=== PATIENT | female | born 1940 | race Two or more races ===

== ENCOUNTER 2018-12-02 00:28 | Inpatient (IN) | payer MEDICARE, OTHER ==
[~2018-12-02] VITALS: Ht 152.4 cm; Wt 70.3 kg
--- NOTE | 2018-12-02 00:28 | NUR ---
TO BED 6 BIB EMS C/O NONRADIATING L SIDED CP X2 HRS PHARMACY CUSTOMER CARE SPECIALIST. PT WAS GIVEN NITRO AND ASPIRIN BY EM PHARMACY CUSTOMER CARE SPECIALIST. PT AAOX4 NO ACUTE DISTRESS NOTED, RESP EVEN AND UNLABORED. SKIN WARM, NONDIAPHORETIC. PLACE PT ON CARDIAC MONITORING, CONTINUOUS POX, O2@2L/NC. SL 20G TO L HAND PHARMACY CUSTOMER CARE SPECIALIST. PENDING ER MD CHADWICK.
--- NOTE | 2018-12-02 00:31 | NUR ---
ER MD AT BEDSIDE TO EVAL PT WITH ORDERS RECEIVED. WILL CARRY OUT ORDERS.
[2018-12-02] MEDS ORDERED: DEXTROSE 50%-WATER 50 ML DISP.SYRIN ONE (00:48)
[2018-12-02 00:53] LABS: BASOPHILS # (AUTO) 0.1 /CMM (0.0-0.2); BASOPHILS % (AUTO) 0.8 % (0.0-2.0); EOSINOPHILS % (AUTO) 3.5 % (0.0-6.0); HEMATOCRIT 30 % (33-45); HEMOGLOBIN 9.8 g/dL (11.5-14.8); LYMPHOCYTES # (AUTO) 0.9 /CMM (0.8-4.8); LYMPHOCYTES % (AUTO) 9.9 % (20.0-44.0); MEAN CORPUSCULAR HGB CONC 33 g/dl (31.0-36.0); MEAN CORPUSCULAR VOLUME 92 fL (82-100); MONOCYTES # (AUTO) 0.6 /CMM (0.1-1.30); MONOCYTES % (AUTO) 6.6 % (2.0-12.0); NEUTROPHILS # (AUTO) 7.3 /CMM (1.8-8.9); NEUTROPHILS % (AUTO) 79.2 % (43.0-81.0); PLATELET COUNT (AUTO) 181 /CMM (150-450); WHITE BLOOD COUNT (AUTO) 9.2 K/uL (4.3-11.0)
[2018-12-02] MEDS ORDERED: DEXTROSE 50%-WATER 50 ML DISP.SYRIN IV ONE (01:00)
[2018-12-02 01:04] LABS: CARBON DIOXIDE 22 mmol/L (21-32); CHLORIDE 107 mmol/L (98-107); CREATININE 1.1 mg/dL (0.6-1.3); GLUCOSE 56 mg/dL (74-106); POTASSIUM 4.4 mmol/L (3.5-5.1); SODIUM SERUM 138 mmol/L (136-145); UREA NITROGEN, BLOOD 19 mg/dL (7-18)
[2018-12-02 01:16] LABS: B-TYPE NATRIURETIC PEPTIDE 7008 PG/ML (0-125)
--- NOTE | 2018-12-02 01:36 | NUR ---
CALLED NURSING CYBER SECURITY ENGINEER FOR TELE BED.
--- NOTE | 2018-12-02 01:43 | NUR ---
REPEAT BLOOD GLUCOSE; REPORTED TO
--- NOTE | 2018-12-02 01:57 | NUR ---
REPORT GIVEN TO LEI TREJO FOR JUANI; PT WILL BE TRANSPOERTED TO 1ST FLOOR TELE
[2018-12-02] MEDS ORDERED: MAGNESIUM HYDROXIDE 30 ML UDC PO PRN (02:00)
[2018-12-02] MEDS ORDERED: ONDANSETRON HCL/PF 4 MG/2 ML VIAL IVP PRN (02:00)
[2018-12-02] MEDS ORDERED: MAG HYDROX/AL HYDROX/SIMETH 30 ML UDC PO PRN (02:00)
[2018-12-02] MEDS ORDERED: Z GUARD REMEDY 2 OZ OINT TP PRN (02:00)
[2018-12-02] MEDS ORDERED: MORPHINE SULFATE INJ 2 MG/ML DISP.SYRIN IV PRN (02:00)
[2018-12-02] MEDS ORDERED: NITROGLYCERIN 0.4 MG/TAB BOTTLE SL PRN (02:00)
[2018-12-02] MEDS ORDERED: MORPHINE SULFATE INJ 4 MG/ML DISP.SYRIN IV PRN (02:04)
[2018-12-02] MEDS ORDERED: ISOS10TA2 PO (02:18)
[2018-12-02] MEDS ORDERED: MULT1TAB73 PO (02:18)
[2018-12-02] MEDS ORDERED: SACU1TAB PO (02:18)
[2018-12-02] MEDS ORDERED: PANT40TA2 PO (02:18)
[2018-12-02] MEDS ORDERED: DULA0.75 SQ (02:18)
[2018-12-02] MEDS ORDERED: AMIO200T4 PO (02:18)
[2018-12-02] MEDS ORDERED: ATOR40TA PO (02:18)
[2018-12-02] MEDS ORDERED: TICA90TA PO (02:18)
[2018-12-02] MEDS ORDERED: CARV12.52 PO (02:18)
[2018-12-02] MEDS ORDERED: CHOL10002 PO (02:18)
[2018-12-02] MEDS ORDERED: ASPI-1152 PO (02:18)
[2018-12-02] MEDS ORDERED: INSU100I19 SQ (02:18)
[2018-12-02] MEDS ORDERED: BLOO-668 IN (02:18)
[2018-12-02] MEDS ORDERED: ESCI10TA PO (02:18)
--- NOTE | 2018-12-02 02:20 | NUR ---
PAWN BROKER OPENING NOTES, RECEIVED PATIENT FROM ED VIA GURNEY, PATIENT ADMITTED FOR CHEST PAIN/CHF/HYPOLIPIDEMIA. PAIN FOR OVER 2 HOURS BEFORE ARRIVING TO ER FROM [facility]. A/O X4. NO SOB OR ANY ACUTE DISTRESS NOTED AT THIA TIME. ON TELE MONITOR, HR 77. ON NC 6L TOLERATING WELL. VS IS WNL. LEFT WRIST 20G IV SALINE LOCK, NO INFILTRATION NOTED, FLUSHING WELL. ALL SAFETY MEASURES ARE IN PLACE, BED LOW/LOCKED, SIDE RAILS UPX2. CALL LIGHT WITHIN REACH. WILL CONTINUE TO MONITOR.
[2018-12-02 04:00] VITALS: BP 158/76
[2018-12-02 06:18] LABS: CHOLESTEROL 152 mg/dL (<200); HDL CHOLESTEROL 55 mg/dL (40-60); LDL 84 mg/dL (0-99); TRIGLYCERIDES 60 mg/dL (30-150)
--- NOTE | 2018-12-02 07:05 | NUR ---
WEDGER MACHINE CLOSING NOTES, PATIENT IN BED SLEEPING. A/O X4. NO SOB OR ANY ACUTE DISTRESS NOTED AT THIA TIME. ON TELE MONITOR, HR 77. ON NC 3L TOLERATING WELL. VS IS WNL. LEFT WRIST 20G IV SALINE LOCK, NO INFILTRATION NOTED, FLUSHING WELL. ALL SAFETY MEASURES ARE IN PLACE, BED LOW/LOCKED, SIDE RAILS UPX2. CALL LIGHT WITHIN REACH. WILL ENDORSE TO AM RN FOR JUANI.
--- NOTE | 2018-12-02 07:46 | NUR ---
CLINIC BUSINESS MANAGER NOTES, PATIENT IN BED ,AWAKE AWAKE , ALERT , FAMILY AT BEDSIDE . A/O X4. NO SOB OR ANY ACUTE DISTRESS NOTED AT THISE TIME. ON TELE MONITOR, HR 77. ON NC 3L TOLERATING WELL. NO SOB NOTED AT THIS TIME ,LEFT WRIST 20G IV SALINE LOCK, NO INFILTRATION NOTED, FLUSHING WELL. ALL SAFETY MEASURES ARE IN PLACE, BED LOW/LOCKED, SIDE RAILS UPX2. CALL LIGHT WITHIN REACH. WILL CONT TO MONITOR CLOSELY,PLAN OF CARE DISCUSSED WITH PATIENT
[2018-12-02 08:00] VITALS: BP 154/62
[2018-12-02] MEDS: ASPIRIN 81 MG TAB.CHEW PO SCH (08:04)
[2018-12-02] MEDS: PANTOPRAZOLE 40 MG TABLET.DR PO SCH (08:04)
[2018-12-02 08:44] LABS: IRON, SERUM 177 ug/dl (50-175); TOTAL IRON BINDING CAPACITY 349 ug/dl (250-450)
[2018-12-02 09:00] LABS: FERRITIN 70 ng/mL (8-388); THYROID STIMULATING HORMONE 4.604 uIU/mL (0.358-3.74)
[2018-12-02] MEDS ORDERED: ASPIRIN EC 81 MG TABLET.DR PO SCH (09:00)
[2018-12-02] MEDS ORDERED: PANTOPRAZOLE 40 MG TABLET.DR PO SCH (09:00)
[2018-12-02] MEDS: INSULIN GLARGINE, 100 UNIT/ML CARTRIDGE SQ SCH (09:00)
--- NOTE | 2018-12-02 09:00 | NUR ---
TEXTILE WORKER NOTE SPOKE WITH DR KENT NOTIFIED THAT BNP [id number] [id number]/62 ,STATED THAT WILL CHECK IT OUT Addendum: 12/02/18 at 1037 by LOLLY PRUITT RN 2DECHO WILL BE DONE LATTER ON TODAY
[2018-12-02 09:49] LABS: MAGNESIUM 1.9 mg/dL (1.8-2.4); PHOSPHORUS 4.1 mg/dL (2.5-4.9)
[2018-12-02] MEDS: CARVEDILOL 12.5 MG TABLET PO SCH ×2 (10:18→16:22)
[2018-12-02] MEDS: AMIODARONE HCL 200 MG TABLET PO SCH ×2 (10:18→16:24)
[2018-12-02] MEDS: CHOLECALCIFEROL 1,000 UNIT TABLET (VIT D3) PO SCH ×3 (10:19→16:21)
[2018-12-02] MEDS: ESCITALOPRAM OXALATE (10 MG) 10 MG TABLET PO SCH (10:19)
[2018-12-02] MEDS: ISOSORBIDE DINITRATE (10MG) 10 MG TABLET PO SCH ×3 (10:20→16:23)
[2018-12-02] MEDS: MULTIVITAMINS,THERAGRAN 1 UDTAB TABLET PO SCH (10:20)
[2018-12-02] MEDS: FUROSEMIDE 40 MG/4 ML VIAL IV SCH ×2 (10:21→12:40)
[2018-12-02] MEDS: TICAGRELOR 90 MG TABLET PO SCH ×2 (10:22→21:28)
[2018-12-02] MEDS: ENOXAPARIN SODIUM 40 MG/0.4 ML DISP.SYRIN SQ SCH (10:23)
--- NOTE | 2018-12-02 10:47 | NUR ---
SPIRITUAL MINISTER NOTE MEDS FROM HOME NOT AVAILABLE SPOKE WITH SON , PATIENT COME FROM [facility] , SPOKE WITH CLARA PHARMACIST
[2018-12-02 12:00] VITALS: BP 147/55
[2018-12-02] MEDS ORDERED: DEXTROSE 50%-WATER 50 ML DISP.SYRIN IV PRN (12:00)
[2018-12-02] MEDS: INSULIN REGULAR, HUMAN 100 UNIT/ML 3 ML VIAL SQ PRN ×3 (12:42→21:39)
[2018-12-02] MEDS: BLOOD SUGAR DIAGNOSTIC 1 EACH STRIP IN SCH ×3 (12:45→21:29)
--- NOTE | 2018-12-02 12:48 | NUR ---
rosie rucker rn audograph operator ok to have accuc heck and no dvt pump on Lovenox
--- NOTE | 2018-12-02 15:02 | NUR ---
ms rn note urinated a lot after Lasix was given , changed diaper x3
--- NOTE | 2018-12-02 15:19 | NUR ---
MS RN NOTE 2DECHO DONE ORDERED, NOT IN DISTRESS
[2018-12-02 16:00] VITALS: BP 139/63
[2018-12-02] MEDS: ACETAMINOPHEN 325 MG TABLET PO PRN ×2 (16:28→21:38)
--- NOTE | 2018-12-02 16:43 | NUR ---
ms orosco note c\o low abdominal pain when urinated alka orosco construction project administrator notifyed with order ua cx ,order carried out Addendum: 12/02/18 at 1739 by LOLLY PRUITT RN 1700 Tylenol po given for pain , valentin f\u
[2018-12-02] MEDS: Sacubitril/Valsartan (Entresto 24 mg-26 mg Tablet) PO SCH (17:06)
--- NOTE | 2018-12-02 18:24 | NUR ---
MS RN NOTE UA COLLECTED ORDERED, KEEP CLEAN DRY
[2018-12-02 20:00] VITALS: BP 130/53
--- NOTE | 2018-12-02 20:00 | NUR ---
MS RN NOTE PT IN BED AWAKE. A/OX 3, NO SOB, NO DISTRESS OR DISCOMFORT NOTED. DENIES PAIN. ON O2 3L VIA NC O2 SAT 99 %.LT HAND #20 G S/L INTACT AND PATENT. KEPT HER DRY AND CLEAN. ALL NEEDS ATTENDED. VSS CONTINUE TO MONITOR HER.
[2018-12-02] MEDS: ATORVASTATIN 40 MG TABLET PO SCH (21:36)
[2018-12-02 23:30] LABS: APPEARANCE,URINE Clear (CLEAR); BILIRUBIN,URINE Negative (NEGATIVE); BLOOD, URINE Negative Ery/uL (NEGATIVE); COLOR,URINE Yellow (YELLOW); KETONES,URINE Negative (NEGATIVE); LEUKOCYTE ESTERASE ,URINE Trace (NEGATIVE); NITRITE, URINE Positive (NEGATIVE); PROTEIN,URINE Negative (NEGATIVE); UGLUCOSE Negative (NEGATIVE); UROBILINOGEN,URINE 0.2 EU/dL (0.2)
[2018-12-03] VITALS (8 sets, daily range): BP systolic 110–137; BP diastolic 45–79
[2018-12-03 00:19] LABS: BACTERIA,URINE Many /HPF (None Seen); RBC,URINE 0-2 /HPF (0-2); SQUAMOUS EPITHELIAL CELL,UR Few /HPF (None Seen)
--- NOTE | 2018-12-03 07:00 | NUR ---
RN OPENING NOTES PT IS ASLEEP IN BED. PT HAS HOB ELEVATED WITH EQUAL CHEST RISE AND FALL. NO OBVIOUS SIGNES OF SOB OR PAIN NOTED AT THIS TIME. BED IS LOCKED AND IN LOWEST POSITION WITH CALL LIGHT IN REACH WILL CONTINUE TO MONITOR.
[2018-12-03 07:14] LABS: BASOPHILS # (AUTO) 0.1 /CMM (0.0-0.2); BASOPHILS % (AUTO) 2.3 % (0.0-2.0); EOSINOPHILS % (AUTO) 5.7 % (0.0-6.0); HEMATOCRIT 28 % (33-45); HEMOGLOBIN 9.2 g/dL (11.5-14.8); LYMPHOCYTES # (AUTO) 1.1 /CMM (0.8-4.8); LYMPHOCYTES % (AUTO) 19.1 % (20.0-44.0); MEAN CORPUSCULAR HGB CONC 33 g/dl (31.0-36.0); MEAN CORPUSCULAR VOLUME 92 fL (82-100); MONOCYTES # (AUTO) 0.6 /CMM (0.1-1.30); MONOCYTES % (AUTO) 11.1 % (2.0-12.0); NEUTROPHILS # (AUTO) 3.4 /CMM (1.8-8.9); NEUTROPHILS % (AUTO) 61.8 % (43.0-81.0); PLATELET COUNT (AUTO) 140 /CMM (150-450); WHITE BLOOD COUNT (AUTO) 5.6 K/uL (4.3-11.0)
[2018-12-03 07:46] LABS: CALCIUM, SERUM 8.5 mg/dL (8.5-10.1); CARBON DIOXIDE 22 mmol/L (21-32); CHLORIDE 106 mmol/L (98-107); CREATININE 1.5 mg/dL (0.6-1.3); GLUCOSE 100 mg/dL (74-106); MAGNESIUM 1.7 mg/dL (1.8-2.4); PHOSPHORUS 4.4 mg/dL (2.5-4.9); POTASSIUM 3.6 mmol/L (3.5-5.1); SODIUM SERUM 140 mmol/L (136-145); UREA NITROGEN, BLOOD 21 mg/dL (7-18)
[2018-12-03] MEDS: BLOOD SUGAR DIAGNOSTIC 1 EACH STRIP IN SCH ×4 (08:03→22:02)
[2018-12-03] MEDS: MULTIVITAMINS,THERAGRAN 1 UDTAB TABLET PO SCH (08:16)
[2018-12-03] MEDS: ISOSORBIDE DINITRATE (10MG) 10 MG TABLET PO SCH ×3 (08:16→18:01)
[2018-12-03] MEDS: PANTOPRAZOLE 40 MG TABLET.DR PO SCH (08:16)
[2018-12-03] MEDS: ESCITALOPRAM OXALATE (10 MG) 10 MG TABLET PO SCH (08:16)
[2018-12-03] MEDS: CHOLECALCIFEROL 1,000 UNIT TABLET (VIT D3) PO SCH ×3 (08:16→18:01)
[2018-12-03] MEDS: ASPIRIN 81 MG TAB.CHEW PO SCH (08:16)
[2018-12-03] MEDS: AMIODARONE HCL 200 MG TABLET PO SCH ×2 (08:17→18:01)
[2018-12-03] MEDS: TICAGRELOR 90 MG TABLET PO SCH ×2 (08:17→21:21)
[2018-12-03] MEDS: CARVEDILOL 12.5 MG TABLET PO SCH ×2 (08:17→18:01)
[2018-12-03] MEDS: Sacubitril/Valsartan (Entresto 24 mg-26 mg Tablet) PO SCH ×2 (08:18→18:01)
[2018-12-03] MEDS: ENOXAPARIN SODIUM 40 MG/0.4 ML DISP.SYRIN SQ SCH (08:19)
[2018-12-03] MEDS: INSULIN GLARGINE, 100 UNIT/ML CARTRIDGE SQ SCH (08:20)
[2018-12-03] MEDS: VALSARTAN 80 MG TABLET PO SCH (09:58)
[2018-12-03] MEDS: Magnesium 1GM/D5W 100ML PREMIX 100 ML IV SCH ×2 (10:22→11:38)
[2018-12-03] MEDS: INSULIN REGULAR, HUMAN 100 UNIT/ML 3 ML VIAL SQ PRN ×2 (13:05→22:03)
--- NOTE | 2018-12-03 16:00 | NUR ---
SPOKE WITH STUDENT NURSE TO AID IN OBTAINING HOME MEDICATION TRULICITY FROM NURSING FACILITY THAT PT RESIDES IN.
--- NOTE | 2018-12-03 19:15 | NUR ---
SMALL BATTERY PLATE ASSEMBLER OPENING NOTES RECEIVED PATIENT RESTING IN BED, AWAKE, A/OX4, ABLE TO MAKE NEEDS KNOWN. DENIES ANY PAIN AT THE MOMENT. ON TELE MONITOR SINUS AMIE WITH HR 50'S. ON OXYGEN 3L VIA NC; NO SOB AND NO CARDIAC DISTRESS OR RESPIRATORY DISTRESS NOTED. IV SITE LEFT HAND #20 G S/L INTACT AND PATENT. SAFETY MEASURES IN PLACE; CALL LIGHT WITHIN REACH, SIDE RAILS UP X2, BED LOCKED AND IN LOW POSITION, BED ALARM ON. WILL CONT TO MONITOR PT.
--- NOTE | 2018-12-03 19:24 | NUR ---
RN CLOSING NOTES PT DENIES ANY PAIN OR SOB. PT HOB IS ELEVATED AND BED IS LOCKED AND IN LOWEST POSITION WITH CALL LIGHT IN REACH. REPORT GIVEN TO COPPER PLATE PRINTER RN FOR CONTINUATION OF CARE.
[2018-12-03] MEDS: ATORVASTATIN 40 MG TABLET PO SCH (21:21)
--- NOTE | 2018-12-03 23:38 | NUR ---
MACHINE GRINDER NOTES PATIENT REQUESTING FOR SLEEPING MEDICATION, STATED HAS BEEN TAKING SLEEPING MEDICATION AT HOME BUT DOES NOT REMEMBER WHICH ONE. PAGED MD AND ORDERED AMBIEN 5MG PO. WILL ATTEND TO ORDERS.
[2018-12-04] VITALS: BP 112/48
[2018-12-04] MEDS ORDERED: ZOLPIDEM TARTRATE 5 MG TABLET PO ONE
[2018-12-04 04:00] VITALS: BP 118/43
[2018-12-04 06:23] LABS: BASOPHILS # (AUTO) 0.1 /CMM (0.0-0.2); BASOPHILS % (AUTO) 1.9 % (0.0-2.0); EOSINOPHILS % (AUTO) 5.4 % (0.0-6.0); HEMATOCRIT 25 % (33-45); HEMOGLOBIN 8.5 g/dL (11.5-14.8); LYMPHOCYTES # (AUTO) 0.9 /CMM (0.8-4.8); LYMPHOCYTES % (AUTO) 17.3 % (20.0-44.0); MEAN CORPUSCULAR HGB CONC 33 g/dl (31.0-36.0); MEAN CORPUSCULAR VOLUME 92 fL (82-100); MONOCYTES # (AUTO) 0.6 /CMM (0.1-1.30); MONOCYTES % (AUTO) 11.1 % (2.0-12.0); NEUTROPHILS # (AUTO) 3.3 /CMM (1.8-8.9); NEUTROPHILS % (AUTO) 64.3 % (43.0-81.0); PLATELET COUNT (AUTO) 128 /CMM (150-450); RED BLOOD CELL COUNT(AUTO) 2.78 MIL/uL (4.0-5.2); WHITE BLOOD COUNT (AUTO) 5.1 K/uL (4.3-11.0)
[2018-12-04 06:44] LABS: ALANINE AMINOTRANSFERASE 35 U/L (12-78); ALBUMIN 2.7 g/dL (3.4-5.0); ALKALINE PHOSPHATASE 70 U/L (46-116); ASPARTATE AMINOTRANSFERASE 19 U/L (15-37); BILIRUBIN,TOTAL 0.5 mg/dL (0.2-1.0); CALCIUM, SERUM 8.1 mg/dL (8.5-10.1); CARBON DIOXIDE 25 mmol/L (21-32); CHLORIDE 105 mmol/L (98-107); CREATININE 1.5 mg/dL (0.6-1.3); GLUCOSE 81 mg/dL (74-106); MAGNESIUM 2.2 mg/dL (1.8-2.4); PHOSPHORUS 3.9 mg/dL (2.5-4.9); POTASSIUM 3.6 mmol/L (3.5-5.1); SODIUM SERUM 139 mmol/L (136-145); TOTAL PROTEIN, SERUM 5.7 g/dL (6.4-8.2); UREA NITROGEN, BLOOD 22 mg/dL (7-18)
--- NOTE | 2018-12-04 06:47 | NUR ---
DENTAL ASSISTANT CLOSING NOTES PATIENT SLEEPING IN BED, BUT EASY TO AROUSE, A/OX4, ABLE TO MAKE NEEDS KNOWN. ON TELE MONITOR SINUS AMIE WITH HR 50'S. ON OXYGEN 3L VIA NC; TOLERATING WELL, NO SOB AND NO CARDIAC DISTRESS OR RESPIRATORY DISTRESS NOTED. IV SITE LEFT AC #22, FLUSHING AND PATENT, S/L. ALL MD ORDERS ATTENDED, ALL NEEDS ANTICIPATED AND MET. PATIENT REFUSED TO BE CLEANED IN THE MORNING. SAFETY MEASURES IN PLACE; CALL LIGHT WITHIN REACH, SIDE RAILS UP X2, BED LOCKED AND IN LOW POSITION, BED ALARM ON. WILL CONT TO MONITOR PT. WILL ENDORSE TO AM RN FOR JUANI.
--- NOTE | 2018-12-04 07:00 | NUR ---
RN AM SHIFT NOTE PATIENT ALERT ORITNED AND AWAKE. NO COMPLAINTS OF PAIN AT THIS TIME. VITALS WNL, IV PATENT AND FLUSHING WELL. SINUS RHYTHM ON MONITOR , SKIN INTACT, EATING WELL, NO CCOMPAIINTS OF CHEST PAIN AT THIS TIME. ALL NEEDS MET
[2018-12-04] MEDS: BLOOD SUGAR DIAGNOSTIC 1 EACH STRIP IN SCH ×4 (07:59→22:10)
[2018-12-04 08:00] VITALS: BP 127/46
[2018-12-04] MEDS: TICAGRELOR 90 MG TABLET PO SCH (08:41)
[2018-12-04] MEDS: VALSARTAN 80 MG TABLET PO SCH (08:41)
[2018-12-04] MEDS: CHOLECALCIFEROL 1,000 UNIT TABLET (VIT D3) PO SCH ×3 (08:41→17:24)
[2018-12-04] MEDS: PANTOPRAZOLE 40 MG TABLET.DR PO SCH (08:42)
[2018-12-04] MEDS: Sacubitril/Valsartan (Entresto 24 mg-26 mg Tablet) PO SCH ×2 (08:42→18:13)
[2018-12-04] MEDS: ISOSORBIDE DINITRATE (10MG) 10 MG TABLET PO SCH ×3 (08:42→17:24)
[2018-12-04] MEDS: CARVEDILOL 12.5 MG TABLET PO SCH ×2 (08:43→17:25)
[2018-12-04] MEDS: ESCITALOPRAM OXALATE (10 MG) 10 MG TABLET PO SCH (08:43)
[2018-12-04] MEDS: ASPIRIN 81 MG TAB.CHEW PO SCH (08:43)
[2018-12-04] MEDS ORDERED: Dulaglutide (Trulicity) 0.75 MG SQ SCH ×2 (09:00)
--- NOTE | 2018-12-04 09:00 | NUR ---
TRULICITY MEDICATIONI NOT IN THE NONFORMULARY BIN. RN ATTEMPT TO ADMINISTER, NOT AVAILABLE. USED MYERS TO GET ACCESS NOTHING IN BIN. PATIENT DID NOT PROVIDE MEDICATION.
[2018-12-04] MEDS: AMIODARONE HCL 200 MG TABLET PO SCH ×2 (09:05→17:25)
[2018-12-04] MEDS ORDERED: KEY,NONCONTROL,TO KEEP IN PYXI 1 EA MC ONE (09:07)
[2018-12-04] MEDS: MULTIVITAMINS,THERAGRAN 1 UDTAB TABLET PO SCH (09:10)
[2018-12-04] MEDS: ENOXAPARIN SODIUM 40 MG/0.4 ML DISP.SYRIN SQ SCH (09:11)
[2018-12-04] MEDS ORDERED: FUROSEMIDE 40 MG/4 ML VIAL IV SCH ×2 (09:30→13:30)
[2018-12-04] MEDS: POTASSIUM CHLORIDE 20 MEQ TAB.PRT.SR PO SCH ×3 (10:10→13:56)
[2018-12-04] MEDS: INSULIN GLARGINE, 100 UNIT/ML CARTRIDGE SQ SCH (10:23)
[2018-12-04 10:54] LABS: ABG BASE EXCESS -1.8 mmol/L; ABG OXYGEN SATURATION 93.8 % (92.0-98.5); ABG PCO2 35.7 mmHg (35.0-45.0); ABG PH 7.416 (7.350-7.450); ABG PO2 71.9 mmHg (75.0-100.0); AaDO2 35.1 mmHg; COHb 0.4 % (0.5-1.5); MetHb 0.5 % (0.0-1.5); SITE, ABG Right Brachial; VENT MODE, BG room air
[2018-12-04 12:00] VITALS: BP 108/52
[2018-12-04] MEDS: INSULIN REGULAR, HUMAN 100 UNIT/ML 3 ML VIAL SQ PRN ×2 (12:47→18:11)
[2018-12-04] MEDS ORDERED: FUROSEMIDE 40 MG/4 ML VIAL IV ONE (13:30)
[2018-12-04] MEDS ORDERED: POTASSIUM CHLORIDE 20 MEQ TAB.PRT.SR PO ONE (13:36)
--- NOTE | 2018-12-04 14:00 | NUR ---
RN NOTE DVT DOPPLAR IMAGING CALLED RN TO INFORM OF RESULTS FROM BILATERAL LOWER EXTREMITY DOPPLAR ULTRASOUND. VERBALIZED OVER THE PHONE RT LEG POSITIVE FOR DVT. MD ON FLOOR RN NOTIFED MD , NO NEW ORDERS AT THIS TIME.
--- NOTE | 2018-12-04 14:36 | NUR ---
1400 K DUR 3 DOSES GIVEN OF KDUR PER MD ORDER. RN GAVE PATIENT MEDICATION WELL LASIX BUT DID NOT PASS MEDICATION DURING WINDOW. RE ORDERD THE MEDICATION PER MD ORDER AND ADMINISTERED PO AND IV. PATIENT URINATING MULTIPLE TIMES. CHANGED DIAPER X4.
[2018-12-04 16:00] VITALS: BP 122/60
[2018-12-04] MEDS: ENOXAPARIN SODIUM 80 MG/0.8 ML DISP.SYRIN SQ SCH (17:29)
[2018-12-04 20:00] VITALS: BP 142/67
[2018-12-04] MEDS ORDERED: ENOXAPARIN SODIUM 80 MG/0.8 ML DISP.SYRIN SQ SCH (21:00)
[2018-12-04] MEDS: ATORVASTATIN 40 MG TABLET PO SCH (22:09)
[2018-12-04] MEDS: HYDROCODONE/APAP 5/325MG 1 EACH TABLET PO PRN (22:22)
[2018-12-05] MEDS: HYDROCODONE/APAP 5/325MG 1 EACH TABLET PO PRN (02:25)
[2018-12-05 04:00] VITALS: BP 155/67
[2018-12-05 06:33] LABS: BASOPHILS # (AUTO) 0.1 /CMM (0.0-0.2); BASOPHILS % (AUTO) 1.3 % (0.0-2.0); EOSINOPHILS % (AUTO) 6.8 % (0.0-6.0); HEMATOCRIT 29 % (33-45); HEMOGLOBIN 9.7 g/dL (11.5-14.8); MEAN CORPUSCULAR HGB CONC 34 g/dl (31.0-36.0); MEAN CORPUSCULAR VOLUME 92 fL (82-100); MONOCYTES # (AUTO) 0.7 /CMM (0.1-1.30); MONOCYTES % (AUTO) 13.3 % (2.0-12.0); NEUTROPHILS # (AUTO) 3.1 /CMM (1.8-8.9); NEUTROPHILS % (AUTO) 59.6 % (43.0-81.0); PLATELET COUNT (AUTO) 150 /CMM (150-450); RED BLOOD CELL COUNT(AUTO) 3.12 MIL/uL (4.0-5.2); WHITE BLOOD COUNT (AUTO) 5.3 K/uL (4.3-11.0)
[2018-12-05 07:00] LABS: ALANINE AMINOTRANSFERASE 30 U/L (12-78); ALBUMIN 3.1 g/dL (3.4-5.0); ALKALINE PHOSPHATASE 77 U/L (46-116); ASPARTATE AMINOTRANSFERASE 20 U/L (15-37); BILIRUBIN,TOTAL 0.5 mg/dL (0.2-1.0); CALCIUM, SERUM 8.5 mg/dL (8.5-10.1); CARBON DIOXIDE 26 mmol/L (21-32); CHLORIDE 102 mmol/L (98-107); CREATININE 1.4 mg/dL (0.6-1.3); GLUCOSE 141 mg/dL (74-106); MAGNESIUM 1.9 mg/dL (1.8-2.4); PHOSPHORUS 3.3 mg/dL (2.5-4.9); POTASSIUM 3.5 mmol/L (3.5-5.1); SODIUM SERUM 139 mmol/L (136-145); TOTAL PROTEIN, SERUM 6.5 g/dL (6.4-8.2); UREA NITROGEN, BLOOD 18 mg/dL (7-18)
--- NOTE | 2018-12-05 07:34 | NUR ---
RN OPENING NOTES PT AWAKE AND IN BED SITTING UPRIGHT, PT DENIES ANY PAIN OR SOB AT PRESENT MOMENT. REPORT RECEIVED FROM MERCHANDISE TEAM MANAGER RN. BED IS LOCKED AND IN LOWEST POSITION WITH CALL LIGHT IN REACH. WILL CONTINUE TO MONITOR.
[2018-12-05 08:00] VITALS: BP 110/64
[2018-12-05] MEDS: BLOOD SUGAR DIAGNOSTIC 1 EACH STRIP IN SCH ×4 (08:04→22:24)
[2018-12-05] MEDS: PANTOPRAZOLE 40 MG TABLET.DR PO SCH (08:27)
[2018-12-05] MEDS: ASPIRIN 81 MG TAB.CHEW PO SCH (08:27)
[2018-12-05] MEDS: MULTIVITAMINS,THERAGRAN 1 UDTAB TABLET PO SCH (08:27)
[2018-12-05] MEDS: ESCITALOPRAM OXALATE (10 MG) 10 MG TABLET PO SCH (08:28)
[2018-12-05] MEDS: CHOLECALCIFEROL 1,000 UNIT TABLET (VIT D3) PO SCH ×3 (08:28→17:33)
[2018-12-05] MEDS: ISOSORBIDE DINITRATE (10MG) 10 MG TABLET PO SCH ×3 (08:28→17:34)
[2018-12-05] MEDS: CARVEDILOL 12.5 MG TABLET PO SCH ×2 (08:29→17:34)
[2018-12-05] MEDS: AMIODARONE HCL 200 MG TABLET PO SCH (08:29)
[2018-12-05] MEDS: Sacubitril/Valsartan (Entresto 24 mg-26 mg Tablet) PO SCH ×2 (08:30→17:34)
[2018-12-05] MEDS: ENOXAPARIN SODIUM 80 MG/0.8 ML DISP.SYRIN SQ SCH (08:32)
[2018-12-05] MEDS: INSULIN REGULAR, HUMAN 100 UNIT/ML 3 ML VIAL SQ PRN ×4 (08:32→22:25)
[2018-12-05] MEDS: INSULIN GLARGINE, 100 UNIT/ML CARTRIDGE SQ SCH (08:49)
[2018-12-05] MEDS: ACETAMINOPHEN 325 MG TABLET PO PRN (13:09)
[2018-12-05] MEDS: TICAGRELOR 90 MG TABLET PO SCH ×2 (14:17→17:34)
--- NOTE | 2018-12-05 14:18 | NUR ---
MD KENT AWARE OF PT ON MULTIPLE BLOOD THINNER WANTS TO CONTINUE WITH SENAIT.
[2018-12-05 16:00] VITALS: BP 136/79
--- NOTE | 2018-12-05 19:26 | NUR ---
RN CLOSING NOTES PT IS IN BED IN SEMI WISDOM POSITION RESTING. DENIES PAIN OR SOB AT PRESENT MOMENT. PT IS A&OX4. BED IS LOCKED AND IN LOWEST POSITION WITH CALL LIGHT IN REACH. REPORT GIVEN TO IMPROVEMENT AUDITOR RN FOR CONTINUATION OF CARE.
[2018-12-05 20:00] VITALS: BP 142/55
[2018-12-05] MEDS: RIVAROXABAN 15 MG TABLET PO SCH (22:14)
[2018-12-05] MEDS: ATORVASTATIN 40 MG TABLET PO SCH (22:15)
[2018-12-06 04:00] VITALS: BP 151/48
[2018-12-06 06:37] LABS: BASOPHILS # (AUTO) 0.1 /CMM (0.0-0.2); BASOPHILS % (AUTO) 1.1 % (0.0-2.0); EOSINOPHILS % (AUTO) 4.6 % (0.0-6.0); HEMATOCRIT 33 % (33-45); HEMOGLOBIN 10.8 g/dL (11.5-14.8); LYMPHOCYTES # (AUTO) 0.9 /CMM (0.8-4.8); LYMPHOCYTES % (AUTO) 16.9 % (20.0-44.0); MEAN CORPUSCULAR HGB CONC 33 g/dl (31.0-36.0); MEAN CORPUSCULAR VOLUME 92 fL (82-100); MONOCYTES # (AUTO) 0.6 /CMM (0.1-1.30); MONOCYTES % (AUTO) 11.3 % (2.0-12.0); NEUTROPHILS # (AUTO) 3.6 /CMM (1.8-8.9); NEUTROPHILS % (AUTO) 66.1 % (43.0-81.0); PLATELET COUNT (AUTO) 163 /CMM (150-450); RED BLOOD CELL COUNT(AUTO) 3.54 MIL/uL (4.0-5.2); WHITE BLOOD COUNT (AUTO) 5.5 K/uL (4.3-11.0)
[2018-12-06 06:59] LABS: CALCIUM, SERUM 8.8 mg/dL (8.5-10.1); CREATININE 1.2 mg/dL (0.6-1.3); MAGNESIUM 1.9 mg/dL (1.8-2.4); PHOSPHORUS 2.9 mg/dL (2.5-4.9); POTASSIUM 3.9 mmol/L (3.5-5.1)
--- NOTE | 2018-12-06 07:44 | NUR ---
RN OPENING NOTES PT IS IN BED RESTING. DENIES PAIN OR SOB. BED IS LOCKED AND IN LOWEST POSITION WITH CALL LIGHT IN REACH WILL CONTINUE TO MONITOR.
[2018-12-06 08:00] VITALS: BP_SYST 140; BP_SYST 153; BP_DIAS 48; BP_DIAS 56
[2018-12-06] MEDS: PANTOPRAZOLE 40 MG TABLET.DR PO SCH (08:05)
[2018-12-06] MEDS: BLOOD SUGAR DIAGNOSTIC 1 EACH STRIP IN SCH ×2 (08:05→12:10)
[2018-12-06] MEDS: MULTIVITAMINS,THERAGRAN 1 UDTAB TABLET PO SCH (08:45)
[2018-12-06] MEDS: CHOLECALCIFEROL 1,000 UNIT TABLET (VIT D3) PO SCH ×2 (08:45→13:11)
[2018-12-06] MEDS: ESCITALOPRAM OXALATE (10 MG) 10 MG TABLET PO SCH (08:45)
[2018-12-06] MEDS: RIVAROXABAN 15 MG TABLET PO SCH (08:46)
[2018-12-06] MEDS: Sacubitril/Valsartan (Entresto 24 mg-26 mg Tablet) PO SCH (08:46)
[2018-12-06] MEDS: TICAGRELOR 90 MG TABLET PO SCH (08:47)
[2018-12-06] MEDS: ISOSORBIDE DINITRATE (10MG) 10 MG TABLET PO SCH ×2 (08:47→13:11)
[2018-12-06] MEDS: CARVEDILOL 12.5 MG TABLET PO SCH (08:48)
[2018-12-06] MEDS: INSULIN GLARGINE, 100 UNIT/ML CARTRIDGE SQ SCH (08:49)
[2018-12-06] MEDS: INSULIN REGULAR, HUMAN 100 UNIT/ML 3 ML VIAL SQ PRN (08:50)
[2018-12-06] MEDS ORDERED: AMIODARONE HCL 200 MG TABLET PO SCH (09:00)
[2018-12-06] MEDS ORDERED: Rivaroxaban PO (12:37)
[2018-12-06] MEDS ORDERED: RIVA10TA PO (12:37)
--- NOTE | 2018-12-06 15:46 | NUR ---
GAVE REPORT TO BALWINDER AT [facility] RECEIVING FACILITY. PT WAS ACCEPTED AND REPORT WAS GIVEN AWAITING TRANSPORT.
[2018-12-06 16:00] VITALS: BP 145/49
--- NOTE | 2018-12-06 16:41 | NUR ---
REPORT GIVEN TO BALWINDER AT [place] AND REPORT GIVEN TO EMS. PT IS AWARE OF TRANSFER BACK TO FACILITY AND IS AGREEABLE. PT PRESCRIPTION GIVEN TO EMS IN PACKET. EXITCARE DONE ALONG WITH EDUCATION SESSION. IV REMOVED. PT TAKEN BY AMBULANCE. BELONGINGS GIVEN TO EMS. BELONGINGS LIST SIGNED.
[2018-12-12] MEDS ORDERED: Dulaglutide (Trulicity) 0.75 MG SQ SCH (09:00)
== END 2018-12-06 16:43 | DRG 306 ==
LOC: ER 00:29 → TELE1 01:54 → MEDSG1 12:16 → TELE1 22:44 → MEDSG1 12-04 09:45
PROVIDERS: ADMIT Hospitalist; ATTEND Hospitalist
DX: I34.0 Nonrheumatic mitral (valve) insufficiency (principal); N17.0 Acute kidney failure with tubular necrosis; I50.33 Acute on chronic diastolic (congestive) heart failure; J98.11 Atelectasis; J84.9 Interstitial pulmonary disease, unspecified; I82.401 Acute embolism and thrombosis of unspecified deep veins of right lower extremity; J67.9 Hypersensitivity pneumonitis due to unspecified organic dust; E78.5 Hyperlipidemia, unspecified; I11.0 Hypertensive heart disease with heart failure; K21.9 Gastro-esophageal reflux disease without esophagitis; I25.10 Atherosclerotic heart disease of native coronary artery without angina pectoris; E03.9 Hypothyroidism, unspecified; E11.649 Type 2 diabetes mellitus with hypoglycemia without coma; D63.8 Anemia in other chronic diseases classified elsewhere; E11.51 Type 2 diabetes mellitus with diabetic peripheral angiopathy without gangrene; E83.42 Hypomagnesemia; F32.9 Major depressive disorder, single episode, unspecified; I48.91 Unspecified atrial fibrillation; Z82.49 Family history of ischemic heart disease and other diseases of the circulatory system; Z79.899 Other long term (current) drug therapy; T50.2X5A Adverse effect of carbonic-anhydrase inhibitors, benzothiadiazides and other diuretics, initial encounter; Y92.9 Unspecified place or not applicable; I27.20 Pulmonary hypertension, unspecified; D64.9 Anemia, unspecified; Z79.4 Long term (current) use of insulin; T46.2X5A Adverse effect of other antidysrhythmic drugs, initial encounter; R09.02 Hypoxemia; M20.11 Hallux valgus (acquired), right foot; M20.5X1 Other deformities of toe(s) (acquired), right foot; Z74.09 Other reduced mobility; I44.7 Left bundle-branch block, unspecified
CPT/HCPCS: 36415; 36600; 71045-TC; 71250-TC; 73630-TC; 80048-TC; 80053-TC; 80061-TC; 81000-TC; 82728-TC; 82803-TC; 82962-TC; 83540-TC; 83735-TC; 83880; 84100-TC; 84439-TC; 84443-TC; 84484-TC; 85025-TC; 85652-TC; 85730-TC; 87081-TC; 87086-TC; 87186-TC; 93307-TC; 93970-TC; 94799-TC; 97116-TC; 97530-TC; A6253; G0378; J1650; J1815; J1940; J3475; J3490; J7030

== ENCOUNTER 2019-01-22 11:30 | Inpatient (IN) | payer MEDICARE, OTHER ==
[~2019-01-22] VITALS: Ht 160 cm; Wt 60.3 kg
[~2019-01-22 11:30] MED LIST: ATOR40TA PO; BLOO-668 IN; CARV12.52 PO; CHOL10002 PO; DULA0.75 SQ; ESCI10TA PO; INSU100I19 SQ; ISOS10TA2 PO; MULT1TAB73 PO; PANT40TA2 PO; RIVA10TA PO; Rivaroxaban PO; SACU1TAB PO; TICA90TA PO
--- NOTE | 2019-01-22 11:32 | NUR ---
"VEENA SAMUEL 89 from [facility] "Dizzy/Nausea. Anemia went to see MD and had a near syncope event in clinic BS-[id number]" PT AAOX2-3, PT ON NITZA, TOAN, NAD NOTED, -SOB, PENDING MD CHADWICK
--- NOTE | 2019-01-22 11:50 | NUR ---
DR. MARIE AT BEDSIDE FOR EVAL.
--- NOTE | 2019-01-22 12:04 | NUR ---
IV LINE ESTABLISHED ON LEFT HAND G20.
--- NOTE | 2019-01-22 12:04 | NUR ---
CODE STROKE ACTIVATED
[2019-01-22] MEDS ORDERED: CT SWABBABLE VALVE TRANS SET 1 EA INFUS.SET MC ONE (12:06)
[2019-01-22] MEDS ORDERED: IV NS 0.9% 250 ML IV ONE (12:06)
[2019-01-22] MEDS ORDERED: IOHEXOL-350 100 ML VIAL IV ONE (12:06)
--- NOTE | 2019-01-22 12:06 | NUR ---
PATIENT TAKEN TO CT.
[2019-01-22 12:11] LABS: BASOPHILS # (AUTO) 0.1 /CMM (0.0-0.2); BASOPHILS % (AUTO) 0.7 % (0.0-2.0); EOSINOPHILS % (AUTO) 0.9 % (0.0-6.0); HEMATOCRIT 43 % (33-45); HEMOGLOBIN 13.5 g/dL (11.5-14.8); LYMPHOCYTES # (AUTO) 1.2 /CMM (0.8-4.8); LYMPHOCYTES % (AUTO) 13.1 % (20.0-44.0); MEAN CORPUSCULAR HGB CONC 32 g/dl (31.0-36.0); MEAN CORPUSCULAR VOLUME 93 fL (82-100); MONOCYTES # (AUTO) 0.5 /CMM (0.1-1.30); MONOCYTES % (AUTO) 5.8 % (2.0-12.0); NEUTROPHILS # (AUTO) 7.4 /CMM (1.8-8.9); NEUTROPHILS % (AUTO) 79.5 % (43.0-81.0); PLATELET COUNT (AUTO) 213 /CMM (150-450); WHITE BLOOD COUNT (AUTO) 9.3 K/uL (4.3-11.0)
[2019-01-22 12:15] LABS: CHLORIDE 101 mmol/L (98-107); POTASSIUM 4.2 mmol/L (3.5-5.1); SODIUM SERUM 137 mmol/L (136-145)
[2019-01-22 12:17] LABS: CALCIUM, SERUM 9.9 mg/dL (8.5-10.1); CARBON DIOXIDE 21 mmol/L (21-32); CREATININE 2.3 mg/dL (0.6-1.3); GLUCOSE 137 mg/dL (74-106); UREA NITROGEN, BLOOD 40 mg/dL (7-18)
--- NOTE | 2019-01-22 12:22 | NUR ---
PATIENT CAME BACK FROM CT.
[2019-01-22] MEDS ORDERED: ACET-868 PO (12:29)
[2019-01-22] MEDS ORDERED: POTA20TA83 PO (12:29)
[2019-01-22] MEDS ORDERED: TICA90TA PO (12:29)
[2019-01-22] MEDS ORDERED: MULT-24 PO (12:29)
[2019-01-22] MEDS ORDERED: GLUC1KIT IJ (12:29)
[2019-01-22] MEDS ORDERED: INSU100V11 SQ (12:29)
[2019-01-22] MEDS ORDERED: MELA3TAB63 PO (12:29)
[2019-01-22] MEDS ORDERED: LOSA50TA39 PO (12:29)
[2019-01-22] MEDS ORDERED: FURO-144 PO (12:29)
[2019-01-22] MEDS ORDERED: IPRA0.2S9 IH (12:29)
--- NOTE | 2019-01-22 12:43 | NUR ---
epic paged. awaiting admitting md call back.
[2019-01-22] MEDS ORDERED: IV NS 0.9% 500 ML BAG IV ONE (13:00)
--- NOTE | 2019-01-22 13:09 | NUR ---
tele bed [phone]
--- NOTE | 2019-01-22 13:40 | NUR ---
REPORT GIVEN TO EMELY TREJO FOR JUANI PT TRANSPORTED TO 3RD FLOOR VIA ACLS PROTOCOL
--- NOTE | 2019-01-22 14:15 | NUR ---
RECEIVED PATIENT VIA GURNEY. ADMITTED TO TELE (NSR 78). PATIENT AWAKE A/OX2, SPEAKS [place] AND [place]. SKIN INSPECTED; REDNESS ON SACRAL ARIA AND PICTURE TAKEN AND PLACE IN THE CHART. IV ASSESS TO THE RIGHT ARM 20G FLUSHING WELL. PATIENT ORIENTED TO ROOM AND EDUCATED TO USE CALL LIGHT. ADMITTING ORDERS RECEIVED AND IMPLEMENTED. SAFETY PRECAUTIONS IN PLACE , CALL LIGHT WITHIN THE REACH.
[2019-01-22] MEDS ORDERED: Medication Not On Formulary EA (Glucagon,Human Recombinant (Glucagon Emergency Kit) 1 MG IJ PRN (15:00)
[2019-01-22] MEDS ORDERED: MAG HYDROX/AL HYDROX/SIMETH 30 ML UDC PO PRN (15:00)
[2019-01-22] MEDS ORDERED: IPRATROPIUM NEB FS 0.5 MG/2.5 ML AMPUL.NEB IH PRN (15:00)
[2019-01-22] MEDS ORDERED: HYDROCODONE/APAP 5/325MG 1 EACH TABLET PO PRN (15:00)
[2019-01-22] MEDS ORDERED: ACETAMINOPHEN 325 MG TABLET PO PRN ×2 (15:00)
[2019-01-22] MEDS ORDERED: ONDANSETRON HCL/PF 4 MG/2 ML VIAL IVP PRN (15:00)
[2019-01-22] MEDS ORDERED: Z GUARD REMEDY 2 OZ OINT TP PRN (15:00)
[2019-01-22] MEDS ORDERED: MAGNESIUM HYDROXIDE 30 ML UDC PO PRN (15:00)
[2019-01-22] MEDS ORDERED: ZOLPIDEM TARTRATE 5 MG TABLET PO PRN (15:00)
[2019-01-22 15:59] VITALS: BP 157/66
[2019-01-22 16:00] VITALS: BP 157/66
[2019-01-22] MEDS: IV NS 0.9% 1,000 ML IV PRN (16:05)
--- NOTE | 2019-01-22 17:02 | NUR ---
straight cath : urine sent to lab for urinalyses and urine culture. 900 ml out
[2019-01-22] MEDS: ISOSORBIDE DINITRATE (10MG) 10 MG TABLET PO SCH (17:28)
[2019-01-22] MEDS: CARVEDILOL 12.5 MG TABLET PO SCH (17:28)
[2019-01-22] MEDS: BLOOD SUGAR DIAGNOSTIC 1 EACH STRIP IN SCH ×2 (17:33→22:58)
[2019-01-22] MEDS ORDERED: DEXTROSE 50%-WATER 50 ML DISP.SYRIN IV PRN (18:00)
[2019-01-22] MEDS ORDERED: INSULIN REGULAR, HUMAN 100 UNIT/ML 3 ML VIAL SQ PRN (18:00)
[2019-01-22] MEDS: *INSULIN REGULAR(HUMULIN R)HUM 100 UNIT/ML VIAL SQ PRN ×2 (18:13→21:42)
--- NOTE | 2019-01-22 18:50 | NUR ---
PATIENT STABLE , IV FLUID RUNNING AT 150ML/HR. ALL NEEDS ATTENDED. SPOKE WITH PT'S FAMILY AND INFOPMED ABOUT PLAN OF CARE.
--- NOTE | 2019-01-22 19:33 | NUR ---
TELE/RN OPENING NOTES RECEIVED PATIENT IN BED, AWAKE,ALERT X2, IN BED, RESTING COMFORTABLY IN ROOM AIR. DENIES PAIN, CKIN WARM TO TOUCH, RESPIRATIONS EVEN AND UNLABORED, SKIN WARM TO TOUCH, BED LOCKED, CALL LIGHTS WITHIN REACH. INSTRUCTED TO CALL FOR ASSISTANCE. RECEIVED ENDORSEMENT FROM AM RN FOR JUANI. WILL MONITOR.
[2019-01-22 19:55] VITALS: BP 99/40
[2019-01-22 20:00] VITALS: BP 99/40
--- NOTE | 2019-01-22 20:10 | NUR ---
TELE/RN NOTES IV SITE PATENT WITH NO SIGN OF INFILTRATION.IV FLUID INFUSING.
[2019-01-22] MEDS: Z GUARD REMEDY 2 OZ OINT TP SCH (20:29)
[2019-01-22] MEDS: TICAGRELOR 90 MG TABLET PO SCH (21:00)
[2019-01-22] MEDS ORDERED: ENOXAPARIN SODIUM 30 MG/0.3 ML DISP.SYRIN SQ SCH (21:00)
--- NOTE | 2019-01-22 21:05 | NUR ---
TELE/RN NOTES FOLLOWED UP MEDICATION BRILLINTA WITH PHARMACY, AWAITING FOR MED, NOT FOUND IN MED ROOM.
[2019-01-22] MEDS: ATORVASTATIN 40 MG TABLET PO SCH (21:31)
[2019-01-22] MEDS: BLOOD SUGAR DIAGNOSTIC 1 EACH STRIP VI SCH (21:31)
[2019-01-22] MEDS: INSULIN GLARGINE, 100 UNIT/ML CARTRIDGE SQ SCH (21:39)
[2019-01-22] MEDS ORDERED: Medication Not On Formulary EA (Melatonin 3 MG) PO SCH (22:00)
[2019-01-22 22:58] LABS: APPEARANCE,URINE SL CLOUDY (CLEAR); BILIRUBIN,URINE NEGATIVE (NEGATIVE); BLOOD, URINE NEGATIVE Ery/uL (NEGATIVE); COLOR,URINE YELLOW (YELLOW); KETONES,URINE NEGATIVE (NEGATIVE); LEUKOCYTE ESTERASE ,URINE SMALL (NEGATIVE); NITRITE, URINE NEGATIVE (NEGATIVE); PROTEIN,URINE NEGATIVE (NEGATIVE); UGLUCOSE 250 MG/DL mg/dL (NEGATIVE); UROBILINOGEN,URINE 0.2 EU/dL (0.2)
--- NOTE | 2019-01-22 22:59 | NUR ---
TELE/RN NOTES BLOOD SUGAR CHECK 180, PATIENT SLIDING SCALE INSULIN COVERAGE GIVEN WITH A SNACK.
[2019-01-22 23:04] LABS: BACTERIA,URINE Moderate /HPF (None Seen); RBC,URINE 0-2 /HPF (0-2); SQUAMOUS EPITHELIAL CELL,UR Rare /HPF (None Seen)
[2019-01-23] VITALS (7 sets, daily range): BP systolic 110–141; BP diastolic 40–78
[2019-01-23] MEDS: IV NS 0.9% 1,000 ML IV PRN (00:01)
[2019-01-23] MEDS: BLOOD SUGAR DIAGNOSTIC 1 EACH STRIP IN SCH ×3 (05:37→17:28)
--- NOTE | 2019-01-23 05:51 | NUR ---
TELE/RN NOTES BLOOD SUGAR RECEHECK AT 61 ORANGE JUICE PROVIDED AND JELLO TOLERATED WELL BY PATIENT. TO MONITOR,
--- NOTE | 2019-01-23 06:41 | NUR ---
TELE/RN NOTES PATIENT ABLE TO SLEEP DURING THE NIGHT, MONITORED FOR HYPO/HYPERGLYCEMIA, SKIN WARM TO TOUCH, RESPIRATIONS EVEN AND UNLABORED, PROVIDED JUICE AND JELLOW AND RETOOK BLOOD SUGAR. ALERT, ORIENTED X2 . REQUIRE ASSISTANCE IN ADL. WILL ENDORSE TO AM RN FOR JUANI.
[2019-01-23 07:15] LABS: BASOPHILS # (AUTO) 0.1 /CMM (0.0-0.2); BASOPHILS % (AUTO) 1.2 % (0.0-2.0); EOSINOPHILS % (AUTO) 2.3 % (0.0-6.0); HEMATOCRIT 40 % (33-45); LYMPHOCYTES # (AUTO) 1.3 /CMM (0.8-4.8); LYMPHOCYTES % (AUTO) 21.5 % (20.0-44.0); MEAN CORPUSCULAR HGB CONC 33 g/dl (31.0-36.0); MEAN CORPUSCULAR VOLUME 90 fL (82-100); MONOCYTES # (AUTO) 0.7 /CMM (0.1-1.30); MONOCYTES % (AUTO) 11.8 % (2.0-12.0); NEUTROPHILS # (AUTO) 3.8 /CMM (1.8-8.9); NEUTROPHILS % (AUTO) 63.2 % (43.0-81.0); PLATELET COUNT (AUTO) 197 /CMM (150-450)
--- NOTE | 2019-01-23 07:41 | NUR ---
TELE/RN Opening note Patient received resting in bed, A/O x2-3, showing no signs of acute distress or SOB on RA. Tele monitor SR w/BBB at 52. IV on left hand #20 is running at 75ml/hr. Bed is in lowest position, side rails x2 in upright position, call light is within reach and patient is aware of how to call for assistance when needed. Safety, fall, and aspiration precautions enforced. Will continue with plan of care.
[2019-01-23 07:52] LABS: ALANINE AMINOTRANSFERASE 70 U/L (12-78); ALBUMIN 3.3 g/dL (3.4-5.0); ALKALINE PHOSPHATASE 66 U/L (46-116); ASPARTATE AMINOTRANSFERASE 59 U/L (15-37); B-TYPE NATRIURETIC PEPTIDE 6572 PG/ML (0-125); BILIRUBIN,TOTAL 0.7 mg/dL (0.2-1.0); CALCIUM, SERUM 8.9 mg/dL (8.5-10.1); CARBON DIOXIDE 23 mmol/L (21-32); CHLORIDE 100 mmol/L (98-107); CHOLESTEROL 198 mg/dL (<200); CREATININE 2.2 mg/dL (0.6-1.3); GLUCOSE 102 mg/dL (74-106); HDL CHOLESTEROL 52 mg/dL (40-60); LDL 114 mg/dL (0-99); MAGNESIUM 2.1 mg/dL (1.8-2.4); PHOSPHORUS 3.6 mg/dL (2.5-4.9); SODIUM SERUM 135 mmol/L (136-145); THYROID STIMULATING HORMONE 2.675 uIU/mL (0.358-3.74); TOTAL PROTEIN, SERUM 7.1 g/dL (6.4-8.2); TRIGLYCERIDES 176 mg/dL (30-150); UREA NITROGEN, BLOOD 37 mg/dL (7-18)
[2019-01-23] MEDS: TICAGRELOR 90 MG TABLET PO SCH ×2 (08:44→22:14)
[2019-01-23] MEDS: PANTOPRAZOLE 40 MG TABLET.DR PO SCH (08:45)
[2019-01-23] MEDS: MULTIVITAMINS,THERAGRAN 1 UDTAB TABLET PO SCH (08:46)
[2019-01-23] MEDS: CHOLECALCIFEROL 1,000 UNIT TABLET (VIT D3) PO SCH (08:46)
[2019-01-23] MEDS: ESCITALOPRAM OXALATE (10 MG) 10 MG TABLET PO SCH (08:47)
[2019-01-23] MEDS: BLOOD SUGAR DIAGNOSTIC 1 EACH STRIP VI SCH ×4 (08:49→23:01)
[2019-01-23] MEDS: LOSARTAN POTASSIUM 50 MG TABLET PO SCH (08:51)
[2019-01-23] MEDS: CARVEDILOL 12.5 MG TABLET PO SCH ×2 (08:52→17:22)
[2019-01-23] MEDS: ISOSORBIDE DINITRATE (10MG) 10 MG TABLET PO SCH ×3 (08:53→17:22)
[2019-01-23] MEDS: POTASSIUM CHLORIDE 20 MEQ TAB.PRT.SR PO SCH (08:53)
[2019-01-23] MEDS: Z GUARD REMEDY 2 OZ OINT TP SCH ×2 (08:53→22:16)
--- NOTE | 2019-01-23 11:46 | NUR ---
WOUND CARE CONSULT: PT PRESENTS WITH BLANCHABLE REDNESS TO BONY SACRAL AREA AND RASH TO BUTTOCKS PRESENT ON ADMISSION. PT IS INCONTINENT. SACRAL DIMPLE NOTED. RECOMMENDATIONS MADE FOR SKIN PROTECTION AND SKIN CARE. DISCUSSED WITH NURSING STAFF. WILL SEE PRN. CURRENT JD SCORE IS 16. Addendum: 01/23/19 at 1157 by BETHANIE LINDA WNDNU Amended: Links added.
[2019-01-23] MEDS ORDERED: DIATR MEGLU/DIATRIZOATE SODIUM 30 ML BOTTLE (GASTROGRAPHIN) ONE (16:10)
--- NOTE | 2019-01-23 16:25 | NUR ---
MS/RN Oral contrast Per Dr. Whitten for CT abdomen with oral contrast. Mix GASTROGRAFIN 30mL with 1000mL water. Have patient drink 200cc initially, and then 100mL every 20 minutes. Will call radiology when full 1000ml is finished.
[2019-01-23] MEDS: CLOTRIMAZOLE 1% 15 GM TUBE TP SCH (17:22)
--- NOTE | 2019-01-23 18:30 | NUR ---
MS/RN left for CT Patient left for CT at 1830.
--- NOTE | 2019-01-23 18:49 | NUR ---
MS/RN Closing note Patient came back from CT scan. A/O x2-3, showing no signs of acute distress or SOB. Vital signs within baseline, saturating >95% on RA. Tele monitor SR w/BBB 58. IV on left hand #20 s/l is clean and patent. Patient was kept clean and dry, skin care implemented. All patient needs met, all due meds given. Bed is in lowest position, side rails x2 in upright position. Safety, fall and aspiration precautions enforced. Will endorse to fast food shift supervisor.
--- NOTE | 2019-01-23 19:40 | NUR ---
RN OPENING NOTES RECEIVED REPORT FROM [facility] MAYA HAN. FOUND Pt AWAKE, RESTING IN BED, NO S/S OF ACUTE DISTRESS OR SOB NOTED. Pt DENIED HAVING ANY PAIN OR DISCOMFORT AT THIS TIME. Pt IS A/OX2, IS VERBAL & ABLE TO MAKE NEEDS KNOWN & IS FORGETFUL. Pt ON TELE WITH READING OF SR 62 W/BBB, PER REPORT Pt CAN BE SB IN THE 50s WHEN SLEEPING. IV ACCESS ON L HAND #20G, SL. SAFETY MEASURES IN PLACE. BED LOW, LOCKED, HOB ELEVATED, SIDE RAILS UP, CALL LIGHT AND BEDSIDE TABLE WITHIN REACH. BED ALARM ON. WILL CONTINUE TO MONITOR Pt's CONDITION AND SAFETY THROUGHOUT THE NIGHT.
--- NOTE | 2019-01-23 22:00 | NUR ---
RN NOTES ELIQUIS WAS NOT AVAILABLE IN THE Pt's CASSETTE. CHECKED THE PYXIS, NO ELIQUIS WAS AVAILABLE WELL. WILL SEE IF NURSE INSPECTOR TIMERS HAS ANY ELIQUIS?
[2019-01-23] MEDS: ATORVASTATIN 40 MG TABLET PO SCH (22:14)
[2019-01-23] MEDS: INSULIN GLARGINE, 100 UNIT/ML CARTRIDGE SQ SCH (23:08)
[2019-01-24] VITALS: BP 132/58
--- NOTE | 2019-01-24 01:01 | NUR ---
RN NOTES SPOKE WITH NURSE RESTAURANT BARTENDER ON THE PHONE, SAID THEY CARRY ELIQUIS IN THE NIGHT LOCKER. WILL FAX Pt's ORDER TO NURSE RESTAURANT BARTENDER.
[2019-01-24] MEDS ORDERED: APIXABAN 5 MG TABLET ONE (01:09)
[2019-01-24] MEDS: APIXABAN 5 MG TABLET PO SCH ×2 (01:16→10:18)
[2019-01-24 04:00] VITALS: BP 113/45
[2019-01-24 07:03] LABS: BASOPHILS # (AUTO) 0.1 /CMM (0.0-0.2); EOSINOPHILS % (AUTO) 6.5 % (0.0-6.0); HEMATOCRIT 39 % (33-45); HEMOGLOBIN 12.6 g/dL (11.5-14.8); LYMPHOCYTES # (AUTO) 1.6 /CMM (0.8-4.8); LYMPHOCYTES % (AUTO) 28.4 % (20.0-44.0); MEAN CORPUSCULAR HGB CONC 32 g/dl (31.0-36.0); MEAN CORPUSCULAR VOLUME 91 fL (82-100); MONOCYTES # (AUTO) 0.6 /CMM (0.1-1.30); MONOCYTES % (AUTO) 11.4 % (2.0-12.0); NEUTROPHILS # (AUTO) 2.8 /CMM (1.8-8.9); NEUTROPHILS % (AUTO) 51.7 % (43.0-81.0); PLATELET COUNT (AUTO) 178 /CMM (150-450); WHITE BLOOD COUNT (AUTO) 5.5 K/uL (4.3-11.0)
[2019-01-24] MEDS: BLOOD SUGAR DIAGNOSTIC 1 EACH STRIP VI SCH ×3 (07:03→17:16)
--- NOTE | 2019-01-24 07:05 | NUR ---
RN CLOSING NOTES NO SIGNIFICANT CHANGES IN Pt's CONDITION. Pt REMAINS STABLE PER BASELINE. NO S/S OF ACUTE DISTRESS OR SOB NOTED DURING THE NIGHT. ALL NEEDS MET AND ATTENDED TO. SAFETY MEASURES IN PLACE. BED LOW, LOCKED, HOB ELEVATED, SIDE RAILS UP, CALL LIGHT AND BEDSIDE TABLE WITHIN REACH. BED ALARM ON. WILL ENDORSE TO DAYSHIFT RN FOR Pt's JUANI.
--- NOTE | 2019-01-24 07:05 | NUR ---
RN NOTES AC ACCUCHECK BG 102. NO INSULIN COVERAGE NEEDED AT THIS TIME.
[2019-01-24 07:37] LABS: B-TYPE NATRIURETIC PEPTIDE 4033 PG/ML (0-125); CALCIUM, SERUM 8.9 mg/dL (8.5-10.1); CARBON DIOXIDE 23 mmol/L (21-32); CHLORIDE 101 mmol/L (98-107); CREATININE 1.6 mg/dL (0.6-1.3); GLUCOSE 108 mg/dL (74-106); POTASSIUM 4.2 mmol/L (3.5-5.1); SODIUM SERUM 133 mmol/L (136-145); UREA NITROGEN, BLOOD 27 mg/dL (7-18)
[2019-01-24 08:00] VITALS: BP 117/53
--- NOTE | 2019-01-24 08:00 | NUR ---
BANK CLERK OPENING NOTES RECEIVED Pt AWAKE, RESTING IN BED, NO S/S OF ACUTE DISTRESS OR SOB NOTED. Pt DENIED HAVING ANY PAIN OR DISCOMFORT AT THIS TIME. Pt IS A/OX3, IS VERBAL & ABLE TO MAKE NEEDS KNOWN & IS FORGETFUL. Pt ON TELE WITH READING OF SR 62 W/BBB, PER REPORT Pt CAN BE SB IN THE 50s WHEN SLEEPING. IV ACCESS ON L HAND #20G, SL. SAFETY MEASURES IN PLACE. BED LOW, LOCKED, HOB ELEVATED, SIDE RAILS UP, CALL LIGHT AND BEDSIDE TABLE WITHIN REACH. BED ALARM ON. WILL CONTINUE TO MONITOR Pt's CONDITION AND SAFETY
[2019-01-24 08:13] LABS: IRON, SERUM 88 ug/dl (50-175); TOTAL IRON BINDING CAPACITY 254 ug/dl (250-450)
[2019-01-24 08:32] LABS: FERRITIN 449 ng/mL (8-388)
[2019-01-24] MEDS: CHOLECALCIFEROL 1,000 UNIT TABLET (VIT D3) PO SCH (09:44)
[2019-01-24] MEDS: LOSARTAN POTASSIUM 50 MG TABLET PO SCH (09:44)
[2019-01-24] MEDS: POTASSIUM CHLORIDE 20 MEQ TAB.PRT.SR PO SCH (09:44)
[2019-01-24] MEDS: MULTIVITAMINS,THERAGRAN 1 UDTAB TABLET PO SCH (09:44)
[2019-01-24] MEDS: ISOSORBIDE DINITRATE (10MG) 10 MG TABLET PO SCH ×3 (09:45→17:16)
[2019-01-24] MEDS: ESCITALOPRAM OXALATE (10 MG) 10 MG TABLET PO SCH (09:45)
[2019-01-24] MEDS: TICAGRELOR 90 MG TABLET PO SCH (09:45)
[2019-01-24] MEDS: PANTOPRAZOLE 40 MG TABLET.DR PO SCH (09:45)
[2019-01-24] MEDS: CARVEDILOL 12.5 MG TABLET PO SCH ×2 (09:45→17:16)
[2019-01-24] MEDS: CLOTRIMAZOLE 1% 15 GM TUBE TP SCH ×2 (09:56→17:17)
[2019-01-24] MEDS: Z GUARD REMEDY 2 OZ OINT TP SCH (09:57)
[2019-01-24] MEDS ORDERED: APIX5TAB PO (11:44)
[2019-01-24 12:00] VITALS: BP 110/50
[2019-01-24 16:00] VITALS: BP 124/61
[2019-01-24 17:16] VITALS: BP 152/60
--- NOTE | 2019-01-24 17:30 | NUR ---
DISCHARGE PT TO [facility] VIA AMBULANCE WITH STABLE V/S.PT'S BLOOD SUGAR WAS 101-DRANK CRANBERRY JUICE.REPORT CALLED IN TO MAYA BOTELLO RENDERER AND INSTRUCTED TO F/U WITH STROKE COORDINATOR OUTPT AND F/U WITH PCP IN ONE WEEK.WITH NEW RX OF ELIQUIS.IV H/L REMOVED TO LT HAND WITH NO BLEEDING NOTED. PT DENIES ANY PAIN OR DISTRESS.PT EXCITED TO GO BACK TO [facility].SPOKE TO PT'S GRANDSON,HERIBERTO AND MADE AWARE
[2019-01-25 09:06] LABS: IMMUNOGLOBULIN A, SERUM 415 mg/dL (64-422); IMMUNOGLOBULIN G, SERUM 1018 mg/dL (700-1600); IMMUNOGLOBULIN M, SERUM 46 mg/dL (26-217)
[2019-01-27 06:07] LABS: *SPE A/G RATIO 0.9 (0.7-1.7); *SPE ALBUMIN 2.7 g/dL (2.9-4.4); *SPE ALPHA-1-GLOBULIN 0.2 g/dL (0.0-0.4); *SPE ALPHA-2-GLOBULIN 0.8 g/dL (0.4-1.0); *SPE BETA GLOBULIN 1.1 g/dL (0.7-1.3); *SPE M-SPIKE Not Observed g/dL (Not Observed); *SPEGAMMA GLOBULIN 0.9 g/dL (0.4-1.8)
== END 2019-01-24 17:49 | DRG 683 ==
LOC: ER 11:33 → TELE 13:17
PROVIDERS: ADMIT Hospitalist; ATTEND Hospitalist
DX: N17.0 Acute kidney failure with tubular necrosis (principal); I13.0 Hypertensive heart and chronic kidney disease with heart failure and stage 1 through stage 4 chronic kidney disease, or unspecified chronic kidney disease; E44.1 Mild protein-calorie malnutrition; N39.0 Urinary tract infection, site not specified; I50.32 Chronic diastolic (congestive) heart failure; E86.0 Dehydration; I25.10 Atherosclerotic heart disease of native coronary artery without angina pectoris; Z95.5 Presence of coronary angioplasty implant and graft; I48.91 Unspecified atrial fibrillation; E78.5 Hyperlipidemia, unspecified; K21.9 Gastro-esophageal reflux disease without esophagitis; F32.9 Major depressive disorder, single episode, unspecified; E03.9 Hypothyroidism, unspecified; Z86.73 Personal history of transient ischemic attack (TIA), and cerebral infarction without residual deficits; N18.3 Chronic kidney disease, stage 3 (moderate); I27.20 Pulmonary hypertension, unspecified; Z68.23 Body mass index [BMI] 23.0-23.9, adult; E88.09 Other disorders of plasma-protein metabolism, not elsewhere classified; I34.0 Nonrheumatic mitral (valve) insufficiency; E11.22 Type 2 diabetes mellitus with diabetic chronic kidney disease; D64.9 Anemia, unspecified; Z86.718 Personal history of other venous thrombosis and embolism; R59.1 Generalized enlarged lymph nodes; R53.1 Weakness; R63.4 Abnormal weight loss; F03.90 Unspecified dementia, unspecified severity, without behavioral disturbance, psychotic disturbance, mood disturbance, and anxiety
CPT/HCPCS: 36415; 70450-TC; 70496-TC; 70498-TC; 71045-TC; 80048-TC; 80053-TC; 80061-TC; 81000-TC; 82728-TC; 82784; 82962-TC; 83540-TC; 83735-TC; 83880; 84100-TC; 84155; 84165; 84443-TC; 84484-TC; 85025-TC; 85730-TC; 86334; 87081-TC; 87086-TC; 93307-TC; 97116-TC; 97530-TC; G0378; J1650; J1815; J7030; J7050; Q9963; Q9967